=== PATIENT | female | born 1960 ===

== ENCOUNTER 2019-07-02 08:00 | Inpatient (IN) | payer OTHER ==
[~2019-07-02] VITALS: Ht 162.6 cm; Wt 57.6 kg
[2019-07-02] MEDS ORDERED: FENOFIBRATE145 MG PO (09:15)
[2019-07-02] MEDS ORDERED: ATORVASTATIN CA20 MG PO (09:15)
[2019-07-02] MEDS ORDERED: LOSARTAN-HCTZ1 EAC2 PO (09:15)
[2019-07-02] MEDS ORDERED: AMLODIPINE BESYL5 MG PO (09:16)
[2019-07-12] MEDS ORDERED: DUI500 PO (07:37)
[2019-07-12] MEDS ORDERED: ELIQUIS2.5 MG PO (07:37)
[2019-07-12] MEDS ORDERED: PERCOCET 5-3251 EACH PO (07:38)
== END 2019-07-12 21:16 | DRG 470 ==
LOC: O/R 08:00 → SURH 07-09 05:30
PROVIDERS: ADMIT Orthopaedic Surgery
PROC: 0SRB02Z Replacement of Left Hip Joint with Metal on Polyethylene Synthetic Substitute, Open Approach (ICD-10-PCS; principal; 2019-07-09 14:30)
PROC: 30233N1 Transfusion of Nonautologous Red Blood Cells into Peripheral Vein, Percutaneous Approach (ICD-10-PCS; 2019-07-11)
DX: M16.12 Unilateral primary osteoarthritis, left hip (principal); M80.00XA Age-related osteoporosis with current pathological fracture, unspecified site, initial encounter for fracture; D62 Acute posthemorrhagic anemia; I13.10 Hypertensive heart and chronic kidney disease without heart failure, with stage 1 through stage 4 chronic kidney disease, or unspecified chronic kidney disease; N18.3 Chronic kidney disease, stage 3 (moderate); D63.1 Anemia in chronic kidney disease; Z96.642 Presence of left artificial hip joint

== ENCOUNTER → 2019-07-09 06:27 | Outpatient (CLI) | payer OTHER ==
[~2019-07-09 06:27] MED LIST: AMLODIPINE BESYL5 MG PO; ATORVASTATIN CA20 MG PO; DUI500 PO; ELIQUIS2.5 MG PO; FENOFIBRATE145 MG PO; LOSARTAN-HCTZ1 EAC2 PO; PERCOCET 5-3251 EACH PO
== END | disposition home or self-care (01) ==
LOC: LAB 06:27
DX: E87.6 Hypokalemia (principal)

== ENCOUNTER 2021-02-02 07:45 | Inpatient (IN) | payer OTHER ==
[~2021-02-02] VITALS: Ht 162.6 cm; Wt 57.6 kg
[2021-02-11] MEDS ORDERED: PERCOCET 5-3251 EACH PO (16:51)
[2021-02-11] MEDS ORDERED: DUI500 PO (16:51)
[2021-02-11] MEDS ORDERED: ELIQUIS2.5 MG PO (16:51)
== END 2021-02-11 19:21 | DRG 470 ==
LOC: O/R 02-09 05:22 → SURH 02-09 05:22
PROVIDERS: ADMIT Orthopaedic Surgery; ATTEND Orthopaedic Surgery
PROC: 0SR90JZ Replacement of Right Hip Joint with Synthetic Substitute, Open Approach (ICD-10-PCS; principal; 2021-02-09 13:00)
PROC: 30233N1 Transfusion of Nonautologous Red Blood Cells into Peripheral Vein, Percutaneous Approach (ICD-10-PCS; 2021-02-10)
DX: M16.11 Unilateral primary osteoarthritis, right hip (principal); D62 Acute posthemorrhagic anemia; I12.9 Hypertensive chronic kidney disease with stage 1 through stage 4 chronic kidney disease, or unspecified chronic kidney disease; N18.32 Chronic kidney disease, stage 3b; Z20.822 Contact with and (suspected) exposure to COVID-19